=== PATIENT | female | born 1980 | race Caucasian/White ===

== ENCOUNTER → 2019-03-27 | Outpatient (CLI) | payer BC ==
--- NOTE | 2019-03-28 09:06 | MM ---
Reason for exam: screening (asymptomatic). Baseline mammogram. Physical Findings: Nurse did not find any significant physical abnormalities on exam. MG Screening Mammo w CAD Bilateral CC and MLO view(s) were taken. The breast tissue is heterogeneously dense. This may lower the sensitivity of mammography. No suspicious abnormality. These results were verbally communicated with the patient and result sheet given to the patient on 03/27/19. ASSESSMENT: Negative, BI-RAD 1 RECOMMENDATION: Routine screening mammogram of both breasts in 1 year.
== END | disposition home or self-care (01) ==
LOC: RADMAMWWP 15:39
PROVIDERS: ATTEND Obstetrics & Gynecology Obstetrics
DX: Z12.31 Encounter for screening mammogram for malignant neoplasm of breast (principal)
CPT/HCPCS: 77067

== ENCOUNTER → 2020-07-09 | Outpatient (CLI) | payer BC ==
--- NOTE | 2020-07-20 10:35 | MM ---
Reason for exam: screening (asymptomatic). Last mammogram was performed 1 year and 3 months ago. Physical Findings: A clinical breast exam by your physician is recommended on an annual basis and results should be correlated with mammographic findings. MG 3D Screening Mammo W/Cad Bilateral CC and MLO view(s) were taken. Prior study comparison: March 27, 2019, bilateral MG screening mammo w CAD. The breast tissue is heterogeneously dense. This may lower the sensitivity of mammography. Lateral left CC asymmetric density does not persist on 3D. No significant changes when compared with prior studies. ASSESSMENT: Negative, BI-RAD 1 RECOMMENDATION: Routine screening mammogram of both breasts in 1 year.
== END | disposition home or self-care (01) ==
LOC: RADMAMWWP 09:58
PROVIDERS: ATTEND Obstetrics & Gynecology Obstetrics
DX: Z12.31 Encounter for screening mammogram for malignant neoplasm of breast (principal)
CPT/HCPCS: 77063; 77067

== ENCOUNTER → 2021-04-14 | Outpatient (CLI) | payer BC ==
[2021-04-14 23:26] LABS: HCT 36.8 % (37.2-46.3); HGB 11.7 g/dL (12.0-15.0); MCH 30.7 pg (27.0-32.0); MCHC 31.8 g/dL (32.0-37.0); MCV 96.6 fL (80.0-97.0); Mean Platelet Volume 11.7 fL (9.5-12.2); Platelet Count 201 X 10*3/uL (140-440); RBC 3.81 X 10*6/uL (4.10-5.20); RDW 12.9 % (11.5-14.5); WBC 7.04 X 10*3/uL (4.50-10.00)
[2021-04-15 21:01] LABS: HCG,Quantitative Serum <0.1 (0.0-6.0)
== END | disposition home or self-care (01) ==
LOC: LABWHC1 15:39
PROVIDERS: ATTEND Obstetrics & Gynecology Obstetrics
DX: N93.9 Abnormal uterine and vaginal bleeding, unspecified (principal); R68.89 Other general symptoms and signs
CPT/HCPCS: 36415; 84439; 84443; 84702; 85027

== ENCOUNTER → 2021-10-11 | Outpatient (CLI) | payer BC ==
--- NOTE | 2021-10-11 21:18 | CT ---
EXAMINATION TYPE: CT sinus wo con DATE OF EXAM: 10/11/2021 COMPARISON: NONE HISTORY: sinus congestion CT DLP: 410.2 mGycm. Automated Exposure Control for Dose Reduction was Utilized. TECHNIQUE: CT scan of the sinuses is performed without contrast, axial images are obtained, coronal r eformatted images are also reviewed. FINDINGS: Some mucosal thickening and patchy opacification in the posterior ethmoid sinuses bilateral ly otherwise paranasal sinuses are clear.. The ostiomeatal complex is patent bilaterally on coronal image 18. Visualized portion of mastoid air cells show patchy opacification bilaterally. The globes are intact bilaterally. Visualized portion of brain parenchyma is unremarkable. IMPRESSION: Mild posterior ethmoid sinus disease bilaterally. Possible mild bilateral mastoiditis. Co rrelate clinically.
== END | disposition home or self-care (01) ==
LOC: RADCTMAIN 17:20
PROVIDERS: ATTEND Otolaryngology
DX: J32.2 Chronic ethmoidal sinusitis (principal)
CPT/HCPCS: 70486

== ENCOUNTER → 2021-11-03 | Outpatient (CLI) | payer BC ==
--- NOTE | 2021-11-04 12:01 | MM ---
Reason for exam: screening (asymptomatic). Last mammogram was performed 1 year and 4 months ago. Physical Findings: A clinical breast exam by your physician is recommended on an annual basis and results should be correlated with mammographic findings. MG 3D Screening Mammo W/Cad Bilateral CC and MLO view(s) were taken. Prior study comparison: July 09, 2020, bilateral MG 3d screening mammo w/cad. March 27, 2019, bilateral MG screening mammo w CAD. The breast tissue is heterogeneously dense. This may lower the sensitivity of mammography. Asymmetric breast tissue 10cm from nipple medial right breast on CC view and upper aspect on right MLO view 7cm from nipple. This finding is changed when compared with previous exams. ASSESSMENT: Incomplete: need additional imaging evaluation, BI-RAD 0 RECOMMENDATION: Special view mammogram of the right breast. If lesion persists on supplemental views, image directed ultrasound is recommended. [facility] will attempt to contact patient to return for supplemental views and ultrasound if indicated.
== END | disposition home or self-care (01) ==
LOC: RADMAMWWP 16:41
PROVIDERS: ATTEND Obstetrics & Gynecology Obstetrics
DX: Z12.31 Encounter for screening mammogram for malignant neoplasm of breast (principal)
CPT/HCPCS: 77063; 77067

== ENCOUNTER → 2021-11-09 | Outpatient (CLI) | payer BC ==
--- NOTE | 2021-11-09 10:55 | MM ---
Reason for exam: additional evaluation requested from abnormal screening. Last mammogram was performed less than 1 month ago. Physical Findings: A clinical breast exam by your physician is recommended on an annual basis and results should be correlated with mammographic findings. MG 3D Work Up W/Cad RT CC and MLO view(s) were taken of the right breast. Prior study comparison: November 03, 2021, bilateral MG 3d screening mammo w/cad. July 09, 2020, bilateral MG 3d screening mammo w/cad. The breast tissue is heterogeneously dense. This may lower the sensitivity of mammography. There is no definate abnormality but benign dense tissue. Results were given to the patient verbally at the time of the exam. ASSESSMENT: Incomplete: need additional imaging evaluation, BI-RAD 0 RECOMMENDATION: Ultrasound of the right breast.
== END | disposition home or self-care (01) ==
LOC: RADMAMWWP 10:00
PROVIDERS: ATTEND Obstetrics & Gynecology Obstetrics
DX: R92.8 Other abnormal and inconclusive findings on diagnostic imaging of breast (principal)
CPT/HCPCS: 77061; 77065

== ENCOUNTER → 2021-12-07 | Outpatient (CLI) | payer BC ==
[2021-12-07 10:37] LABS: Basophils # (A) 0.04 X 10*3/uL (0.00-0.10); Basophils % (A) 0.7 %; Eosinophils # (A) 0.23 X 10*3/uL (0.04-0.35); Eosinophils % (A) 4.2 %; HCT 38.8 % (37.2-46.3); HGB 11.9 g/dL (12.0-15.0); Immature Grans, Automated 0.2 %; Lymphocytes # (A) 2.13 X 10*3/uL (0.90-5.00); Lymphocytes % (A) 39.2 %; MCH 29.9 pg (27.0-32.0); MCHC 30.7 g/dL (32.0-37.0); MCV 97.5 fL (80.0-97.0); Mean Platelet Volume 12.1 fL (9.5-12.2); Monocytes % (A) 5.5 %; NRBC Per 100 WBC 0 /100 WBCS (0.0-0.0); Neutrophils # (A) 2.72 X 10*3/uL (1.80-7.70); Neutrophils % (A) 50.2 %; Platelet Count 181 X 10*3/uL (140-440); RBC 3.98 X 10*6/uL (4.10-5.20); RDW 12.6 % (11.5-14.5); WBC 5.43 X 10*3/uL (4.50-10.00)
[2021-12-07 10:50] LABS: ALT 13 U/L (8-44); African American GFR (CKD) 129.4 (60.0-200.0); Alkaline Phosphatase 38 U/L (41-126); Blood Urea Nitrogen 12.5 mg/dL (9.0-27.0); Non-African American GFR(CKD) 111.6 (60.0-200.0)
[2021-12-07 10:56] LABS: HCG,Quantitative Serum <3.0 (0.0-6.0); LDH 193 U/L (120-246)
== END | disposition home or self-care (01) ==
LOC: LABWHC1 07:04
PROVIDERS: ATTEND Dermatology
DX: L70.9 Acne, unspecified (principal)
CPT/HCPCS: 36415; 82247; 82465; 82565; 83615; 84075; 84460; 84478; 84520; 84702; 85025

== ENCOUNTER 2021-12-10 11:49 | Observation (INO) | payer BC ==
[2021-12-10 12:03] VITALS: RESP 16
[2021-12-10] MEDS ORDERED: SODIUM CHLORIDE 0.9% 1,000 ML IV STA (12:25)
[2021-12-10] MEDS ORDERED: diphenhydrAMINE 50 MG/ML 1 ML VIAL IVP STA (12:27)
[2021-12-10] MEDS ORDERED: methylPREDNISolone SOD SUCCI 125 MG/2 ML VIAL IV STA (12:27)
[2021-12-10] MEDS ORDERED: FAMOTIDINE 20 MG/2 ML VIAL IV STA (12:27)
--- NOTE | 2021-12-10 13:08 | ED ---
General Adult HPI - General Chief complaint: Seizure Stated complaint: Seizures Time Seen by Provider: 12/10/21 12:20 Source: patient, EMS, RN notes reviewed, old records reviewed Mode of arrival: EMS Limitations: no limitations - History of Present Illness Initial comments: Patient is a 41-year-old female with no significant past medical history who pr esents to the emergency department complaining of suspected new-onset seizure at work. Episode was witnessed. 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 Coworkers were talking with her and she stopped responding. She now she was laying on the ground. She had bitten her tongue. Jemima state that she began to collapse and they caught her and lowered her to the ground. She had generalized shaking episode, particularly the upper extremities. There is no episode of incontinence. Patient did feel confused afterwards, however states she feels back to normal in terms of mentation. This episode occurred approximately one hour ago. Her only acute complaint at this time is a headache, that seems to be one of the worst headaches of her life. Describes it as behind bilateral eyes, and throbbing. Denies any known history of brain aneurysms. Denies any blurry vision or changes in vision. Has no chest pain, shortness breath, abdominal pain, nausea, vomiting. No fevers or chills. No history of blood clots. The only medication she takes is control. Patient presents for further evaluation at this time. No history of epilepsy and family members herself previously. - Related Data Home Medications Medication Instructions Recorded Confirmed Azelastine HCl 2 sprays NASAL BID 12/10/21 12/10/21 Clindamycin Phos/Benzoyl Perox 1 applic TOPICAL DAILY 12/10/21 12/10/21 [Benzaclin Gel] Fexofenadine HCl [Linda Allergy] 180 mg PO DAILY 12/10/21 12/10/21 Multivitamins, Thera [Multivitamin 1 tab PO DAILY 12/10/21 12/10/21 (formulary)] Fxnyyu-Vf-Yu 1-0.02(21)-75 Tab 1 tab PO DAILY 12/10/21 12/10/21 Sarecycline HCl [Seysara] 100 mg PO DAILY 12/10/21 12/10/21 Sod Sulfacet-Sulfur 10-5% Clsr 1 applic TOPICAL DAILY 12/10/21 12/10/21 Allergies Allergy/AdvReac Type Severity Reaction Status Date / Time codeine Allergy Chest Pain Verified 12/10/21 13:44 Review of Systems ROS Statement: Those systems with pertinent positive or pertinent negative responses have been documented in the HPI. Review of Systems: CONST: Denies fever EYES: Denies blurry vision ENT: Denies nasal congestion C/V: Denies Chest pain RESP: Denies shortness of breath GI: Denies abdominal pain : Denies dysuria SKIN: Denies rash. MSK: Denies joint pain. NEURO: Endorses 9 out of 10 headache ROS Other: All systems not noted in ROS Statement are negative. Past Medical History Additional Past Medical History / Comment(s): Acne, History of Any Multi-Drug Resistant Organisms: None Reported Past Surgical History: Cholecystectomy Past Psychological History: No Psychological Hx Reported Smoking Status: Never smoker Past Alcohol Use History: Occasional Past Drug Use History: None Reported General Exam - General Exam Comments Initial Comments: General: Appears in no acute distress. HEAD: Normal with no signs of head trauma. EYES: PERRLA, EOMI, conjunctiva normal, no discharge. Pupils 2 mm and equal bilaterally. ENT: Hearing grossly intact, normal oropharynx. RESPIRATORY: Clear breath sounds bilaterally. No wheezes, rales, or rhonchi. C/V: Regular rate and rhythm. S1 and S2 auscultated, no edema, peripheral pulses 2+ and intact throughout ABD: Abd is soft, nontender, nondistended EXT: Normal range of motion, no obvious deformity SKIN: No rashes or lesions observed on exposed skin. NEURO: Alert and oriented x 4. Cranial nerves II-XII intact. No focal sensory or strength deficits. NIH of 0. GCS of 15. Normal cerebellar function is evident by normal finger to nose testing and [id number] testing. Limitations: no limitations Course Vital Signs 12/10/21 11:53 Temperature 97.8 F Pulse Rate 79 Respiratory 16 Rate Blood Pressure 144/91 O2 Sat by Pulse 100 Oximetry Medical Decision Making - Medical Decision Making Based on the patient's presentation and physical exam, I'm concerned for possible new onset seizure but cannot rule out syncopal episode. The patient severe headache, I am most concerned for possible acute intracranial process. Therefore we will obtain CT imaging of the brain and CT angiogram of the neck and head. This is in addition to a seizure workup, including basic labs, urine studies, alcohol level, chest x-ray and screening EKG. Vital signs are within normal limits and stable at this time. She states she may have had a reaction to iodine contrast in the past and will therefore be administered premedication with Benadryl, Pepcid, site Medrol. She'll be given 1 L fluid bolus and she was in agreement this plan. Patient's laboratory studies were remarkable for lactic acid within normal limits. Cranial kinase is mildly elevated at 141. Remainder of the labs are unremarkable. CT brain imaging revealed a possible minor Chiari I malformation. No other acute intracranial process. CT angiogram revealed no signs of aneurysm or acute intracranial process. No signs of any sort of intracranial bleeding. Chest x-ray shows no acute cardio pulmonary process. On reevaluation, patient is feeling improved. I did discuss the results with her. I would like to have her admitted and evaluated by neurology for new onset seizures. She was in agreement this plan. I spoke with Dr. Crouch of neurology was in agreement to consult. I spoke with the admitting team, and Dr. New of [facility] who is admitting for Dr. Gonzalez who is the patient's PCP. They were in agreement this plan. Patient was admitted in stable condition to observation. - Lab Data Result diagrams: 12/10/21 15:03 12/10/21 12:59 Lab Results 12/10/21 12/10/21 12/10/21 Range/Units 12:59 12:59 12:59 WBC (3.8-10.6) k/uL RBC (3.80-5.40) m/uL Hgb (11.4-16.0) gm/dL Hct (34.0-46.0) % MCV (80.0-100.0) fL MCH (25.0-35.0) pg MCHC (31.0-37.0) g/dL RDW (11.5-15.5) % Plt Count (150-450) k/uL MPV Neutrophils % % Lymphocytes % % Monocytes % % Eosinophils % % Basophils % % Neutrophils # (1.3-7.7) k/uL Lymphocytes # (1.0-4.8) k/uL Monocytes # (0-1.0) k/uL Eosinophils # (0-0.7) k/uL Basophils # (0-0.2) k/uL Sodium 135 L (137-145) mmol/L Potassium 3.8 (3.5-5.1) mmol/L Chloride 102 (98-107) mmol/L Carbon Dioxide 26 (22-30) mmol/L Anion Gap 7 mmol/L BUN 13 (7-17) mg/dL Creatinine 0.49 L (0.52-1.04) mg/dL Est GFR (CKD-EPI)AfAm >90 (>60 ml/min/1.73 sqM) Est GFR (CKD-EPI)NonAf >90 (>60 ml/min/1.73 sqM) Glucose 94 (74-99) mg/dL Plasma Lactic Acid Telly 1.8 (0.7-2.0) mmol/L Calcium 8.1 L (8.4-10.2) mg/dL Magnesium 1.9 (1.6-2.3) mg/dL Total Bilirubin 0.4 (0.2-1.3) mg/dL AST 26 (14-36) U/L ALT 15 (4-34) U/L Alkaline Phosphatase 36 L (38-126) U/L Creatine Kinase 141 H (30-135) U/L Total Protein 7.1 (6.3-8.2) g/dL Albumin 3.8 (3.5-5.0) g/dL HCG, Qual Not Detected Urine Color Colorless Urine Appearance Clear (Clear) Urine pH 7.0 (5.0-8.0) Ur Specific [place] 1.010 (1.001-1.035) Urine Protein Negative (Negative) Urine Glucose (UA) Negative (Negative) Urine Ketones Negative (Negative) Urine Blood Negative (Negative) Urine Nitrite Negative (Negative) Urine Bilirubin Negative (Negative) Urine Urobilinogen <2.0 (<2.0) mg/dL Ur Leukocyte Esterase Negative (Negative) Urine Opiates Screen Not Detected (NotDetected) Ur Oxycodone Screen Not Detected (NotDetected) Urine Methadone Screen Not Detected (NotDetected) Ur Propoxyphene Screen Not Detected (NotDetected) Ur Barbiturates Screen Not Detected (NotDetected) U Tricyclic Antidepress Not Detected (NotDetected) Ur Phencyclidine Scrn Not Detected (NotDetected) Ur Amphetamines Screen Not Detected (NotDetected) U Methamphetamines Scrn Not Detected (NotDetected) U Benzodiazepines Scrn Not Detected (NotDetected) Urine Cocaine Screen Not Detected (NotDetected) U Marijuana (THC) Screen Not Detected (NotDetected) Serum Alcohol <10 mg/dL 12/10/21 Range/Units 15:03 WBC 7.8 (3.8-10.6) k/uL RBC 4.14 (3.80-5.40) m/uL Hgb 12.7 (11.4-16.0) gm/dL Hct 39.7 (34.0-46.0) % MCV 96.0 (80.0-100.0) fL MCH 30.7 (25.0-35.0) pg MCHC 32.0 (31.0-37.0) g/dL RDW 12.7 (11.5-15.5) % Plt Count 220 (150-450) k/uL MPV 8.8 Neutrophils % 84 % Lymphocytes % 12 % Monocytes % 2 % Eosinophils % 1 % Basophils % 0 % Neutrophils # 6.5 (1.3-7.7) k/uL Lymphocytes # 0.9 L (1.0-4.8) k/uL Monocytes # 0.1 (0-1.0) k/uL Eosinophils # 0.1 (0-0.7) k/uL Basophils # 0.0 (0-0.2) k/uL Sodium (137-145) mmol/L Potassium (3.5-5.1) mmol/L Chloride (98-107) mmol/L Carbon Dioxide (22-30) mmol/L Anion Gap mmol/L BUN (7-17) mg/dL Creatinine (0.52-1.04) mg/dL Est GFR (CKD-EPI)AfAm (>60 ml/min/1.73 sqM) Est GFR (CKD-EPI)NonAf (>60 ml/min/1.73 sqM) Glucose (74-99) mg/dL Plasma Lactic Acid Telly (0.7-2.0) mmol/L Calcium (8.4-10.2) mg/dL Magnesium (1.6-2.3) mg/dL Total Bilirubin (0.2-1.3) mg/dL AST (14-36) U/L ALT (4-34) U/L Alkaline Phosphatase (38-126) U/L Creatine Kinase (30-135) U/L Total Protein (6.3-8.2) g/dL Albumin (3.5-5.0) g/dL HCG, Qual Urine Color Urine Appearance (Clear) Urine pH (5.0-8.0) Ur Specific [place] (1.001-1.035) Urine Protein (Negative) Urine Glucose (UA) (Negative) Urine Ketones (Negative) Urine Blood (Negative) Urine Nitrite (Negative) Urine Bilirubin (Negative) Urine Urobilinogen (<2.0) mg/dL Ur Leukocyte Esterase (Negative) Urine Opiates Screen (NotDetected) Ur Oxycodone Screen (NotDetected) Urine Methadone Screen (NotDetected) Ur Propoxyphene Screen (NotDetected) Ur Barbiturates Screen (NotDetected) U Tricyclic Antidepress (NotDetected) Ur Phencyclidine Scrn (NotDetected) Ur Amphetamines Screen (NotDetected) U Methamphetamines Scrn (NotDetected) U Benzodiazepines Scrn (NotDetected) Urine Cocaine Screen (NotDetected) U Marijuana (THC) Screen (NotDetected) Serum Alcohol mg/dL Disposition Clinical Impression: New onset seizure Disposition: ADMITTED IP TO THIS [facility] Condition: Stable Instructions (If sedation given, give patient instructions): Seizure/Epilepsy Discharge Instructions & Follow-Up Referrals: Guillermo Castañeda MD [Primary Care Provider] - 1-2 days Time of Disposition: 16:00
[2021-12-10 13:45] LABS: HCG,Qualitative Serum Not Detected
[2021-12-10 13:47] LABS: ALT 15 U/L (4-34); AST 26 U/L (14-36); African American GFR (CKD) >90 (>60 ml/min/1.73 sqM); Albumin 3.8 g/dL (3.5-5.0); Alcohol <10 mg/dL; Alkaline Phosphatase 36 U/L (38-126); Anion Gap 7 mmol/L; Blood Urea Nitrogen 13 mg/dL (7-17); Calcium 8.1 mg/dL (8.4-10.2); Carbon Dioxide 26 mmol/L (22-30); Chloride 102 mmol/L (98-107); Creatine Kinase 141 U/L (30-135); Glucose 94 mg/dL (74-99); Magnesium 1.9 mg/dL (1.6-2.3); Non-African American GFR(CKD) >90 (>60 ml/min/1.73 sqM); Potassium 3.8 mmol/L (3.5-5.1); Sodium 135 mmol/L (137-145); Total Bilirubin 0.4 mg/dL (0.2-1.3); Total Protein 7.1 g/dL (6.3-8.2)
--- NOTE | 2021-12-10 14:25 | XR ---
EXAMINATION TYPE: XR chest 2V DATE OF EXAM: 12/10/2021 COMPARISON: NONE HISTORY: Seizure. TECHNIQUE: Frontal and lateral views of the chest are obtained. FINDINGS: There is no suspicious focal air space opacity, pleural effusion, or pneumothorax seen. T he cardiac silhouette size is mildly enlarged. Underlying scoliosis is present. There is loss of norm al thoracic curvature on the lateral view. IMPRESSION: Mild cardiomegaly without acute pulmonary process.
--- NOTE | 2021-12-10 14:46 | CT ---
EXAMINATION TYPE: CT brain wo con DATE OF EXAM: 12/10/2021 COMPARISON: None. HISTORY: seizure CT DLP: 1092.6 mGycm. Automated Exposure Control for Dose Reduction was Utilized. TECHNIQUE: CT scan of the head is performed without contrast. FINDINGS: There is no acute intracranial hemorrhage, mass effect, or midline shift identified. The ventricles and sulci are within normal limits in size. Antony-white matter differentiation is maintain ed. Low-lying cerebellar tonsils extending into the foramen magnum. The globes are intact and the vis ualized sinuses are clear. Persistent anterior metopic suture. IMPRESSION: No acute intracranial hemorrhage or midline shift is seen. Low-lying cerebellar tonsils, possible Chiari type I malformation.
--- NOTE | 2021-12-10 15:11 | CT ---
EXAMINATION TYPE: CT angio head neck DATE OF EXAM: 12/10/2021 HISTORY: Headache and seizures COMPARISON: None Automated Exposure Control for Dose Reduction was Utilized. TECHNIQUE: Multiple axial images are obtained through the head and neck following uneventful menstru ation nonionic IV contrast and according to the CTA protocol. Coronal and sagittal reconstructions we re generated. 3-D postprocessing was performed. Images were also generated and reviewed. FINDINGS: The brachiocephalic origins are widely patent and there is no significant stenosis. There is no stenosis of the common or internal carotid arteries within the neck. There is no significant stenosis or segmental occlusion within the intracerebral arterial circulation . Intracranially, there is no sizable aneurysm sac or vascular malformation. IMPRESSION: No significant abnormality seen. NASCET criteria was used in interpretation of this exam?
[2021-12-10 15:13] LABS: Basophils % (A) 0 %; Eosinophils # (A) 0.1 k/uL (0-0.7); Eosinophils % (A) 1 %; HCT 39.7 % (34.0-46.0); HGB 12.7 gm/dL (11.4-16.0); Lymphocytes # (A) 0.9 k/uL (1.0-4.8); Lymphocytes % (A) 12 %; MCH 30.7 pg (25.0-35.0); Mean Platelet Volume 8.8; Monocytes # (A) 0.1 k/uL (0-1.0); Monocytes % (A) 2 %; Neutrophils # (A) 6.5 k/uL (1.3-7.7); Neutrophils % (A) 84 %; Platelet Count 220 k/uL (150-450); RBC 4.14 m/uL (3.80-5.40); RDW 12.7 % (11.5-15.5); WBC 7.8 k/uL (3.8-10.6)
[2021-12-10 15:29] LABS: Appearance,Urine Clear (Clear); Bilirubin,Urine Negative (Negative); Blood,Urine Negative (Negative); Color,Urine Colorless; Glucose,Urine (UA) Negative (Negative); Ketones,Urine Negative (Negative); Leukocyte Esterase,Urine Negative (Negative); Nitrite,Urine Negative (Negative); Protein,Urine Negative (Negative); Urobilinogen,Urine <2.0 mg/dL (<2.0)
[2021-12-10 16:03] LABS: Amphetamine Screen,Urine Not Detected (NotDetected); Barbiturate Screen,Urine Not Detected (NotDetected); Benzodiazepines Screen,Urine Not Detected (NotDetected); Cocaine Screen,Urine Not Detected (NotDetected); Methadone Screen, Urine Not Detected (NotDetected); Opiate Screen,Urine Not Detected (NotDetected); Oxycodone Screen, Urine Not Detected (NotDetected); Phencyclidine Screen,Urine Not Detected (NotDetected); Tricyclic Antidepressant,Urine Not Detected (NotDetected); Urn Cannabinoid Scrn Not Detected (NotDetected)
[2021-12-10] MEDS ORDERED: NALOXONE 0.4 MG/ML 1 ML VIAL IV PRN (16:20)
[2021-12-11 08:45] VITALS: BP 136/67; PULSE 46; TEMP 97.6
[2021-12-11 12:00] LABS: Basophils # (A) 0.01 X 10*3/uL (0.00-0.10); Basophils % (A) 0.1 %; Eosinophils # (A) 0 X 10*3/uL (0.04-0.35); Eosinophils % (A) 0 %; HCT 39.5 % (37.2-46.3); HGB 12.4 g/dL (12.0-15.0); Immature Grans, Automated 0.5 %; Lymphocytes # (A) 1.11 X 10*3/uL (0.90-5.00); Lymphocytes % (A) 10.8 %; MCH 30.9 pg (27.0-32.0); MCHC 31.4 g/dL (32.0-37.0); MCV 98.5 fL (80.0-97.0); Mean Platelet Volume 12.1 fL (9.5-12.2); Monocytes # (A) 0.46 X 10*3/uL (0.20-1.00); Monocytes % (A) 4.5 %; NRBC Per 100 WBC 0 /100 WBCS (0.0-0.0); Neutrophils # (A) 8.64 X 10*3/uL (1.80-7.70); Neutrophils % (A) 84.1 %; Platelet Count 203 X 10*3/uL (140-440); RBC 4.01 X 10*6/uL (4.10-5.20); RDW 12.8 % (11.5-14.5); WBC 10.27 X 10*3/uL (4.50-10.00)
[2021-12-11 12:03] LABS: African American GFR (CKD) 129.4 (60.0-200.0); Anion Gap 11.2 mmol/L (10.00-18.00); Blood Urea Nitrogen 9.6 mg/dL (9.0-27.0); Calcium 8.8 mg/dL (8.7-10.3); Carbon Dioxide 23.8 mmol/L (20.0-27.5); Non-African American GFR(CKD) 111.6 (60.0-200.0); Potassium 3.7 mmol/L (3.5-5.5)
--- NOTE | 2021-12-11 14:07 | P.HPIM ---
History of Present Illness H&P Date: 12/11/21 Chief Complaint: Seizures Patient is a 41-year-old female without significant past medical history presents to ER after a witnessed seizure activity at work. 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 She suddenly had a episode of sandy vu and started having shaking movements of the hands. Patient's colleague caught her and lowered her to the ground. She leaned onto the ground and bit her tongue. She was also having frothy mouth at bedtime. EMS was called and patient woke up while she was coming to ER. Denied any complaints of bladder or bowel incontinence. Patient states that she has been having episodes of sandy vu when she suddenly losing consciousness briefly but this time she had prolonged episode with shaky movements. Denied any complaints of headache. No recent illnesses. Denied any blurry vision. No slurred speech. She patient felt weak and she woke up. Denied any recent illnesses. Chest x-ray showed mild cardiomegaly without acute pulmonary disease. CT head showed no acute intracranial hemorrhage or midline shift is seen. Low- lying cerebellar tonsils. Possible leticia type I malformation. CT angiogram showed no significant abnormality. EKG showed sinus bradycardia with sinus arrhythmia. Laboratory data showed a sodium that her potassium 3.8 chloride 102 bicarb is 26 BUN 13 and creatinine 0.49 Lactic acid 21.8 Alk phos 36 and CK 141. Beta hcg not detected Urinalysis is negative and UDS is negative. Review of Systems Constitutional: Patient denies any fever or chills . No generalized weakness or weight loss. Abdomen: Patient denied nausea vomiting and diarrhea and abdominal pain. Cardiovascular: Patient denies any chest pain or short of breath no palpitations. Respiratory: patient denied any cough is from production. No shortness of breath Neurologic: Patient denied any numbness or tingling headache. Musculoskeletal: Patient denies any complaints of joint swelling or deformity. Skin: Negative Psychiatric: Negative Endocrine: No heat or cold intolerance. No recent weight gain. Genitourinary: No dysuria or hematuria. All other 14 point ROS negative except the above Past Medical History Past Medical History: No Reported History Additional Past Medical History / Comment(s): Acne, History of Any Multi-Drug Resistant Organisms: None Reported Past Surgical History: Cholecystectomy Past Psychological History: No Psychological Hx Reported Smoking Status: Former smoker Past Alcohol Use History: Occasional Past Drug Use History: None Reported Medications and Allergies Home Medications Medication Instructions Recorded Confirmed Type Hetldx-Zn-Ck 1-0.02(73)-75 Tab 1 tab PO DAILY 12/10/21 12/10/21 History RX: Azelastine HCl 2 sprays NASAL BID 12/10/21 12/10/21 History RX: Clindamycin Phos/Benzoyl Perox 1 applic TOPICAL DAILY 12/10/21 12/10/21 History [Benzaclin Gel] RX: Fexofenadine HCl [Linda 180 mg PO DAILY 12/10/21 12/10/21 History Allergy] RX: Multivitamins, Thera 1 tab PO DAILY 12/10/21 12/10/21 History [Multivitamin (formulary)] RX: Sarecycline HCl [Seysara] 100 mg PO DAILY 12/10/21 12/10/21 History Sod Sulfacet-Sulfur 10-5% Clsr 1 applic TOPICAL DAILY 12/10/21 12/10/21 History Allergies Allergy/AdvReac Type Severity Reaction Status Date / Time codeine Allergy Chest Pain Verified 12/10/21 13:44 Physical Exam Vitals: Vital Signs Temp Pulse Resp BP Pulse Ox 12/11/21 08:44 97.6 F 46 L 16 136/67 99 12/11/21 02:33 98.1 F 67 16 108/62 98 12/10/21 22:37 98.1 F 68 17 151/82 96 Intake and Output 12/10/21 12/11/21 12/11/21 22:59 06:59 14:59 Intake Total 118 Balance 118 Intake: Oral 118 Other: # Voids 1 1 1 Weight 83.915 kg PHYSICAL EXAMINATION: Patient is lying in the bed comfortably, no acute distress, awake alert and oriented.. HEENT: Normocephalic. Neck is supple. Pupils reactive. Nostrils clear. Oral cavity is moist. Neck reveals no JVD, carotid bruits, or thyromegaly. CHEST EXAMINATION: Trachea is central. Symmetrical expansion. Lung cristina clear to auscultation and percussion. CARDIAC: Normal S1, S2 with no gallops. No murmurs ABDOMEN: Soft. Bowel sounds normal. No organomegaly. No abdominal bruits. Extremities: reveal no edema. No clubbing or cyanosis Neurologically awake, alert, oriented x3 with well-coordinated movements. No focal deficits noted Skin: No rash or skin lesions. Psychiatric: Coperative. Nonsuicidal Musculoskeletal: No joint swelling or deformity. Normal range of motion. Results CBC & Chem 7: 12/11/21 06:57 12/11/21 06:57 Labs: Abnormal Lab Results - Last 24 Hours (Table) 12/10/21 12/11/21 12/11/21 Range/Units 15:03 06:57 06:57 WBC 10.27 H (4.50-10.00) X 10*3/uL RBC 4.01 L (4.10-5.20) X 10*6/uL MCV 98.5 H (80.0-97.0) fL MCHC 31.4 L (32.0-37.0) g/dL Immature Gran # 0.05 H (0.00-0.04) X 10*3/uL Neutrophils # 8.64 H (1.80-7.70) X 10*3/uL Lymphocytes # 0.9 L (1.0-4.8) k/uL Eosinophils # 0 L (0.04-0.35) X 10*3/uL Glucose 119 H (70-110) mg/dL Thrombosis Risk Factor Assmnt - DVT/VTE Prophylaxis DVT/VTE Prophylaxis: Pharmacologic Prophylaxis ordered Assessment and Plan Assessment: Acute seizure episode possible new onset generalized tonic-clonic seizure. History of Aura / Deje vu -like episodes for the past few years. Chiari type I malformation Previous history of smoking DVT prophylaxis with early ambulation. Plan: Patient be continued on seizure precautions and fall precautions. Workup including CT head and CT angiography the chest was done. EEG and MRI of the brain was ordered as per neurology recommendations. Continue the telemetry monitoring. Follow up closely. Time with Patient: Greater than 30
--- NOTE | 2021-12-11 14:56 | MR ---
EXAMINATION TYPE: MR brain wo/w con DATE OF EXAM: 12/11/2021 COMPARISON: None HISTORY: New onset seizure CONTRAST: Standard multiplanar, multisequence MRI departmental protocol images were obtained without contrast a nd with 8 mL intravenous Gadavist gadolinium contrast. Ventricles have normal size. There is no mass effect or midline shift. No sign of intracranial hemorr mana. Diffusion images show no evidence of an acute infarct. The schneider and white matter structures hav e fairly normal signal pattern. No evidence of cerebral edema. There is possible 3 mm focus of increa sed signal in the white matter left parietal lobe. This has doubtful significance. The brainstem is intact. Cerebellum appears normal. There is some mucosal thickening in the right judie e posterior ethmoid sinus. Sella turcica appears normal. Corpus callosum is intact. No evidence of orbital mass. There is no pathologic enhancement. There is normal enhancement of the venous sinuses. Optic chiasm a ppears normal. IMPRESSION: Negative MRI scan of the brain.
--- NOTE | 2021-12-11 15:13 | P.CNNES ---
History of Present Illness Consult date: 12/11/21 Requesting physician: Guillermo Castañeda Reason for Consult: New onset seizure History of Present Illness: Patient is a 41-year-old female came to the hospital yesterday at 11:49 AM. As per EMS flow sheet, when they arrived, found patient postictal, alert and oriented 1 only to herself. She was laying supine on the ground surrounded by coworkers. Patient's coworker stated that patient had a seizure but did not fall or hit her head, as she was helped down by her coworkers and they had protected her head from the impact. Patient's coworkers contacted patient's , who stated she did not have any history of seizures but was recently placed on 2 new medication but could not remember the names. Although one was for acne and the other one for control. Patient was speaking incoherent sentences. EKG shows sinus rhythm with no ectopy. Patient's condition appeared to improve as transport progress. By the time she arrived to the hospital by ambulance, patient was alert and oriented 4. Patient mentioned that the last thing she remembered was having a strange feeling, and after that she blacked out. Her vitals at the scene was 153/86, pulse rate 89 and respirations 20 oxygenation 97% blood sugar 114. Vital signs arrival blood pressure 144/91 pulse is 70. 7.8.. Patient's blood test shows normal CBC, sodium 135 potassium 3.8, normal renal functions, normal hepatic panel. UA negative, urine drug screen and blood alcohol level negative. CT head showed no acute process. Low-lying cerebellar tonsils, possible Chiari I malformation. CTA of head and neck normal. EKG shows sinus bradycardia with sinus arrhythmia. Possible left atrial enlargement. Chest x-ray revealed mild cardiomegaly without acute pulmonary process. Patient states that for around last 2 years she has been having Linda vu type symptoms. It can happen when she is sitting, standing or even while laying in bed. She gets some picture in her mind, or "words that she has heard before". She then zones out, becomes jittery, shaky, nauseous. She feels like "out of body experience". She can hear, but appears muffled. She feels nauseous, but does not vomit. She never had any convulsion with it. It can occur after 3 days, or may not occur for a month. She had at least a dozen of these spells over these couple years. Only a couple times it has happened when patient was talking to someone. One time she was at the doctor's office with her daughter, when she had a spell, and she could not respond until the spell was over. Patient has not seen any neurologist for these spells. Patient states that she also gets some visual disturbance, unrelated to the above spells, consisting of seeing blotches in her vision, can last from an hour to a whole day. These visual disturbances has been occurring for last 4 years. She denies any history of migraines, although sometimes gets sinus pressure headache, feels like eyes will bulge out. Patient states that yesterday at work at 11:30 PM she was standing outside at recess, talking to a coworker when she had a similar Linda vu and then she blacked out. Coworker later told the patient started shaking, foaming from the mouth, she bit her tongue but did not lose control of urine. Patient denies any history of concussion, or head injury. No history of febrile seizures as childhood. Denies any known family history of epilepsy, although patient states that her son also has been experiencing same linda vu type of symptoms for some time. Patient denies drinking heavily. She does drink 1-2 glasses of wine every day. She may drink a bit more, about 4-6 on the weekend. Denies any tobacco use. Patient states that her mother has to that she was born full-term with no problems postnatally. Home medications include multivitamins, fexofenadine, Azelastine, Noreth-E-Fe a control pill, Seysara 100 mg daily. Review of Systems All 14 point a few system reviewed, unremarkable except for tongue soreness from tongue bite. All other review of systems unremarkable. She does feel tired. Past Medical History Past Medical History: No Reported History Additional Past Medical History / Comment(s): Acne, History of Any Multi-Drug Resistant Organisms: None Reported Past Surgical History: Cholecystectomy Past Psychological History: No Psychological Hx Reported Smoking Status: Former smoker Past Alcohol Use History: Occasional Past Drug Use History: None Reported Medications and Allergies Home Medications Medication Instructions Recorded Confirmed Type Azelastine HCl 2 sprays NASAL BID 12/10/21 12/10/21 History Clindamycin Phos/Benzoyl Perox 1 applic TOPICAL DAILY 12/10/21 12/10/21 History [Benzaclin Gel] Fexofenadine HCl [Linda Allergy] 180 mg PO DAILY 12/10/21 12/10/21 History Multivitamins, Thera [Multivitamin 1 tab PO DAILY 12/10/21 12/10/21 History (formulary)] Lttacq-Bu-Bk 1-0.02(21-75 Tab 1 tab PO DAILY 12/10/21 12/10/21 History Sarecycline HCl [Seysara] 100 mg PO DAILY 12/10/21 12/10/21 History Sod Sulfacet-Sulfur 10-5% Clsr 1 applic TOPICAL DAILY 12/10/21 12/10/21 History Allergies Allergy/AdvReac Type Severity Reaction Status Date / Time codeine Allergy Chest Pain Verified 12/10/21 13:44 Physical Examination - Vital Signs Vital Signs: Vital Signs Temp Pulse Pulse Resp BP BP Pulse Ox 12/11/21 02:33 98.1 F 67 16 108/62 98 12/10/21 22:37 98.1 F 68 17 151/82 96 12/10/21 14:00 149/97 100 12/10/21 13:24 144/91 99 12/10/21 11:53 97.8 F 79 16 144/91 100 Intake and Output 12/10/21 12/11/21 12/11/21 22:59 06:59 14:59 Other: # Voids 1 1 Weight 83.915 kg Patient is a middle aged female, in no acute distress. Patient is alert awake oriented to time place and person. Speech and language functions are normal. Patient can name and repeat very well. Attention, concentration and fund of knowledge is adequate. On cranial nerve examination, pupils are round and reacting to light, visual cristina are full on confrontation, with no neglect on double simultaneous stimulation. Her extraocular muscles are intact with no nystagmus. Face is symmetric, tongue protrudes to the midline. Palatal elevation and sensation normal, hearing and shoulder shrug normal, facial sensation normal. Shoulder shrug normal. There is evidence of tongue bite pola on the right. On muscle strength testing, there is no pronator drift and the strength is normal in arms and legs distally and proximally. Deep tendon reflexes are 2+, symmetric and plantars downgoing. Sensory to touch is equal with no neglect. Cerebellar function showed no ataxia for qqlbto-sw-scis testing. No dysdiadochokinesia. Tone and bulk of muscles normal. Gait appears stable. On general examination, there is no carotid bruit or murmur, S1-S2 audible. Abdomen is soft nontender. No organomegaly, bowel sounds present. Chest is clear. Peripheral pulses are present. No edema. 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 Patient has been having auras, described as "Linda-Vu", which probably represents simple versus complex partial seizure sporadically for last 2 years. This time this "Linda Vu" led to a secondary generalized grand mal seizure. * Chiari malformation per CT head. * History of mild alcoholism, probably not related to her seizure. Plan: * Patient will undergo MRI of the brain with and without contrast to evaluate for secondary causes of seizures. Patient also has Chiari malformation, which needs to be addressed with MRI of the brain. * EEG to evaluate for epileptiform activity. * Patient informed of [place] state law of no driving unless seizure free for 6 months, climbing ladders, operating dangerous machinery or unsupervised swimming. Addendum: MRI of the brain with and without contrast was performed, which was reviewed by the radiologist, and read as normal. I reviewed MRI of the brain, and there is definite evidence of Chiari malformation, with cerebellar tonsils protruding around 8 mm below the foramen magnum. No evidence of hydrocephalus. No syrinx noted in the upper cervical spine. Patient needs to be followed up with a neurosurgeon as an outpatient. Patient will be started on Keppra 500 mg twice a day. Possible side effects were discussed. Patient will be discharged home, and undergo 2.5 hours EEG as an outpatient. Recommend patient follow up with neurologist as an outpatient. Neurologically clear for discharge. Time with Patient: Greater than 30 (Spent around 25 minutes of counseling, besides the time spent in direct patient care.)
[2021-12-11] MEDS ORDERED: levETIRAcetam 500 MG TAB PO STA (15:40)
== END 2021-12-11 17:03 | disposition home or self-care (01) ==
LOC: SUPCPDRO 11:49 → EC 11:49 → 6NMEDSUR 16:20
PROVIDERS: ADMIT Internal Medicine; ATTEND Internal Medicine
DX: G40.409 Other generalized epilepsy and epileptic syndromes, not intractable, without status epilepticus (principal); G93.5 Compression of brain; R00.1 Bradycardia, unspecified; Z79.899 Other long term (current) drug therapy; Z88.5 Allergy status to narcotic agent; Z87.891 Personal history of nicotine dependence; Z90.49 Acquired absence of other specified parts of digestive tract
CPT/HCPCS: 96374; 96375; 99285; 36415; 93005; 80053; 80048; 82550; 83605; 83735; 85025 ×2; 81003; 84703; 80306; 80320; 71046; 70496; 70450; 70498; 70553; G0378 ×2; J1200; J2930; A9585; Q9967

== ENCOUNTER → 2021-12-17 | Outpatient (CLI) | payer BC | LOC: NEUROMAIN 07:47 | PROVIDERS: ATTEND Student in an Organized Health Care Education/Training Program | DX: G40.909 Epilepsy, unspecified, not intractable, without status epilepticus (principal); Z88.5 Allergy status to narcotic agent | CPT/HCPCS: 95713 ==

== ENCOUNTER 2022-04-19 15:01 | Emergency (ER) | payer OTHER, BC ==
[2022-04-19 15:07] VITALS: BP 134/82; PULSE 60; RESP 16; TEMP 98
[2022-04-19] MEDS ORDERED: DIPH,PERTUS(ACELL)TETVAC-LF 0.5 ML VIAL IM ONE (15:34)
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
== END 2022-04-19 15:48 | disposition home or self-care (01) ==
LOC: EC 15:01
DX: S60.512A Abrasion of left hand, initial encounter (principal); Z87.891 Personal history of nicotine dependence; Z23 Encounter for immunization; Z88.5 Allergy status to narcotic agent; Y04.1XXA Assault by human bite, initial encounter
CPT/HCPCS: 90471; 90715; 99282; 99283

== ENCOUNTER → 2022-11-23 | Outpatient (CLI) | payer BC ==
--- NOTE | 2022-11-24 19:29 | MM ---
Reason for Exam: Screening (asymptomatic). Last mammogram was performed 1 year(s) and 1 month(s) ago. Patient History: Menarche at age 10. First Full-Term at age 19. Last menstrual period: 10/24/2022 Risk Values: Agnes 5 year model risk: 0.7%. NCI Lifetime model risk: 8.7%. Prior Study Comparison: 07/09/2020 Bilateral Screening Mammogram, [facility]. 11/03/2021 Bilateral Screening Mammogram, [facility]. 11/09/2021 Right Diagnostic Mammogram, [facility]. Tissue Density: The breast tissue is heterogeneously dense. This may lower the sensitivity of mammography. Findings: Analyzed By CAD. There is no suspicious group of microcalcifications or new suspicious mass in either breast. Overall Assessment: Negative, BI-RAD 1 Management: Screening Mammogram of both breasts in 1 year. . Patient should continue monthly self-breast exams. A clinical breast exam by your physician is recommended on an annual basis. This exam should not preclude additional follow-up of suspicious palpable abnormalities. Note on Agnes scores and lifetime risk: 1. A Agnes score greater than 3% is considered moderate risk. If this is the case, consider specialist referral to assess eligibility for a risk reducing agent. 2. If overall lifetime risk for the development of breast cancer is 20% or higher, the patient may qualify for future screening with alternating mammogram and breast MRI. Electronically signed and approved by: Bee Cruz M.D. Radiologist
== END | disposition home or self-care (01) ==
LOC: RADMAMWWP 16:36
PROVIDERS: ATTEND Obstetrics & Gynecology Obstetrics
DX: Z12.31 Encounter for screening mammogram for malignant neoplasm of breast (principal)
CPT/HCPCS: 77063; 77067

== ENCOUNTER 2023-04-18 08:39 | Day surgery (SDC) | payer BC ==
[2023-04-11 16:16] VITALS: BMI 25.1
[~2023-04-18 08:39] MED LIST: DEXAMETHASONE SOD PHOSPHATE 4 MG/ML 1 ML VIAL IV ONE; LACTATED RINGERS 1,000 ML IV SCH; ONDANSETRON 4 MG/2 ML VIAL IVP ONE; fentaNYL (PF) 50 MCG/ML 2 ML AMP IV PRN
[2023-04-18] MEDS ORDERED: MIDAZOLAM 2 MG/2 ML VIAL IVP ONE (09:48)
--- NOTE | 2023-04-18 10:28 | P.HPOB ---
History of Present Illness H&P Date: 04/18/23 Chief Complaint: Heavy menstrual bleeding, dysmenorrhea, ovarian cyst This is a 42-year-old female that presents with complaints of heavy menstrual bleeding and dysmenorrhea. Patient notes her increased bleeding began mostly in November with menstrual cycles on 12/08, 12/26, 01/22, 01/31. Patient states her bleeding is noted to be heavy with clots for proximally 5-6 days. Patient notes that during her cycle she is increasingly fatigued. Ultrasound was performed revealing a slightly enlarged uterus at 9.8 cm, large left ovarian cyst at 5 cm. Uterus has suspicion for adenomyosis. Failure rates of endometrial ablation given her findings are discussed and patient elects d efinitive treatment with hysterectomy. Review of Systems Constitutional: Reports fatigue, Denies chills, Denies fever Ears, nose, mouth and throat: Denies headache Cardiovascular: Denies leg edema Respiratory: Denies dyspnea Gastrointestinal: Denies nausea, Denies vomiting Genitourinary: Reports dysmenorrhea, Denies Menstruation: Reports period heavy Past Medical History Past Medical History: No Reported History Additional Past Medical History / Comment(s): Acne, HAD GRAND MAL SEIZURE 2020, SEASONAL ALLERGIES History of Any Multi-Drug Resistant Organisms: None Reported Past Surgical History: Cholecystectomy Additional Past Surgical History / Comment(s): BILAT TEAR DUCTS ENLARGED Past Anesthesia/Blood Transfusion Reactions: No Reported Reaction Smoking Status: Former smoker - Past Family History Father Family Medical History: Cancer Medications and Allergies Home Medications Medication Instructions Recorded Confirmed Type Azelastine HCl [Astelin Nasal 2 sprays NASAL BID 12/10/21 04/18/23 History [place]] Fexofenadine HCl [Linda Allergy] 180 mg PO DAILY 12/10/21 04/18/23 History Doxycycline Hyclate 100 mg PO BID 04/11/23 04/18/23 History levETIRAcetam [Keppra] 750 mg PO Q12HR 04/11/23 04/18/23 History Allergies Allergy/AdvReac Type Severity Reaction Status Date / Time codeine Allergy Chest Pain Verified 04/18/23 09:22 Exam Osteopathic Statement: *. No significant issues noted on an osteopathic structural exam other than those noted in the History and Physical/Consult. 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 Assessment and Plan (1) Menorrhagia Current Visit: Yes Status: Acute Code(s): N92.0 - SNOMED Code(s): 152965287 (2) Dysmenorrhea Current Visit: Yes Status: Acute Code(s): N94.6 - SNOMED Code(s): 377696395 (3) Ovarian cyst Current Visit: Yes Status: Acute Code(s): N83.209 - SNOMED Code(s): 02350576 (4) Fibroid uterus Current Visit: Yes Status: Acute Code(s): D25.9 - LEIOMYOMA OF UTERUS, UNSPECIFIED SNOMED Code(s): 01929854 Plan: 42-year-old female with complaints of heavy menstrual bleeding and dysmenorrhea. Patient with ultrasound evaluation of the pelvis revealing slightly enlarged uterus at 9.8 cm suspicion of adenomyosis and large 5 cm left ovarian cyst. Patient is counseled on options including endometrial ablation and failure rates given signs of adenomyosis and left ovarian cyst. Patient elects definitive t reatment with hysterectomy. Patient is counseled on robotic cyst vaginal hysterectomy with left salpingo-oophorectomy, diagnostic cystoscopy. Risser reviewed with patient in detail including but not limited to infection, bleeding, damage to bladder, bowel, ureteric injury. Patient states understanding and wishes to proceed.
[2023-04-18] MEDS ORDERED: BUPIVACAINE (PF) 0.25% 30 ML VIAL SQ ONE ×2 (10:50→12:45)
[2023-04-18] MEDS ORDERED: SUCCINYLCHOLINE CHLORIDE 200 MG/10 ML VIAL IV ONE (10:58)
[2023-04-18] MEDS ORDERED: LIDOCAINE 2% INJ 20 MG/ML (2 ML VIAL) ONE (10:58)
[2023-04-18] MEDS ORDERED: PHENYLEPHRINE-0.9% NACL SYG 1,000 MCG/10 ML SYRINGE ONE (10:58)
[2023-04-18] MEDS ORDERED: MORPHINE SULFATE (PF) 0.3 MG/0.3 ML SYR ONE (10:58)
[2023-04-18] MEDS ORDERED: NEOSTIGMINE 1 MG/ML 10 ML VIAL ONE (10:58)
[2023-04-18] MEDS ORDERED: ePHEDrine 50 MG/ML 1 ML VIAL ONE (10:58)
[2023-04-18] MEDS ORDERED: ROCURONIUM 10 MG/ML (5 ML VIAL) IV ONE (10:58)
[2023-04-18] MEDS ORDERED: GLYCOPYRROLATE 0.2 MG/ML 2 ML VIAL ONE (10:58)
[2023-04-18] MEDS ORDERED: fentaNYL (PF) 50 MCG/ML 2 ML AMP ONE (10:58)
[2023-04-18] MEDS ORDERED: diphenhydrAMINE 50 MG/ML 1 ML VIAL ONE (10:58)
[2023-04-18] MEDS ORDERED: MIDAZOLAM 2 MG/2 ML VIAL ONE (10:58)
[2023-04-18] MEDS ORDERED: PROPOFOL 10 MG/ML 20 ML VIAL IV ONE (10:58)
[2023-04-18] MEDS ORDERED: LACTATED RINGERS 1,000 ML IV ONE (12:42)
--- NOTE | 2023-04-18 12:50 | P.ANPRN ---
Procedure Note - Anesthesia - Epidural/Spinal Spinal Time Out Performed: Yes Date of Procedure: 04/18/23 Procedure Start Time: 09:45 Procedure Stop Time: 09:49 Location of Patient: PreOp Indication: Acute Post-Operative Pain, Requested by Surgeon Sedation Type: Sedate with meaningful contact maintained Preparation: Sterile Prep Position: Sitting Needle Guage: 25 Blood Aspirated: No Pain Paresthesia on Injection Noted: No Events: Uneventful and Well Tolerated (duramorph 300 mics plus feantanyl 25 mics)
[2023-04-18] MEDS ORDERED: IBUPROFEN 600 MG TAB PO PRN (12:51)
[2023-04-18] MEDS ORDERED: SIMETHICONE 80 MG CHEWABLE PO PRN (12:51)
[2023-04-18] MEDS ORDERED: ONDANSETRON 4 MG/2 ML VIAL IVP PRN (12:51)
--- NOTE | 2023-04-18 13:03 | P.OP ---
Date of Procedure: 04/18/23 Preoperative Diagnosis: Menorrhagia, dysmenorrhea, ovarian cyst Postoperative Diagnosis: Same Procedure(s) Performed: Robotic-assisted vaginal hysterotomy, bilateral salpingectomy, diagnostic cystoscopy, lysis of adhesions Anesthesia: SCOTTA Surgeon: Janna Arnold Project Reservoir Engineer #1: Mendel Avila Estimated Blood Loss (ml): 50 IV fluids (ml): 900 Urine output (ml): 900 Pathology: other (uterus, cervix,b/l fallopian tubes) Condition: stable Disposition: PACU Indications for Procedure: menorrhagia, dysmenorrhea, large ovarian cyst Operative Findings: Globular uterus, large right ovarian cyst simple in nature, drained with straw- colored fluid appreciated. Hemorrhagic cyst on the left appears ovulatory. On cystoscopy uterus was intact, both ureteral orifices were spilling clear urine Description of Procedure: Patient was taken back to the operating suite where general anesthesia was obtained without difficulty. She is prepped and draped in the normal sterile fashion in the dorsal lithotomy position. A Hunter catheter was then placed under sterile technique. Weighted speculum was placed in the posterior vaginal vault the interval of the cervix is visualized and grasped with a single-tooth tenaculum. The endocervical canal was then serially dilated and a V care uterine miniplate was advanced into the uterus as a means to manipulate the uter us throughout the procedure. The balloon was insufflated and the cervical cap was placed snugly against the cervix. Attention then turned the patient's abdomen are partially 2 finger breaths above the umbilicus a small skin incision is made. Through this incision the Veress needle is placed. Once the Veress needle was deemed to be in the proper position with a drop of CO2 pressure with insufflation of CO2 gas CO2 insufflation was allowed to occur. At this time 8 mm trocar and sleeve is placed through the skin incision and toward the pneumoperitoneum. The above-noted findings were visualized. At this time the additional port sites are placed at 10 cm lateral and 3 cm inferior to the midline port these are 8 mm ports and placed under direct visualization. In the left upper quadrant a 12 mm trocar and sleeve is placed under direct visualization. At this time a omental adhesion was noted to be midline in nature the left Scissors were placed and this was taken down sharply with cau ynes. Hemostasis was appreciated. At this time the da Quique was docked in the usual fashion. The operative arms are now placed. In the right operative arm the monopolar scissors is placed in the left operative arm the bipolar forceps is placed. Attention was then turned to the patient's left fallopian tube which was elevated coagulated and transected. The mesosalpinx was transected up to the uterine ovarian ligament. The uterine ovarian ligament was visualized coagulated distally and proximally divided this continued through the broad and toward the round which is coagulated and transected. Hemostasis was noted. The bladder flap from the left was then created using sharp and blunt dissection. The uterine artery was visualized on the left coagulated and transected. Attention was then turned the patient's right fallopian tube which was elevated and transected. The mesosalpinx was coagulated and transected to the uterine ovarian ligament. The uterine ovarian ligament was coagulated distally and proximally and divided. This continued through the broad and toward the round with good hemostasis noted. The round ligament was visualized quite distally and proximally divided. The bladder flap from the right was then created using sharp and blunt dissection. A Ray-Bhupinder was then passed into the abdomen as a means to dissect the bladder further away from the operating field, the uterine artery was then visualized coagulated and transected. Hemostasis was noted. At this time the only remaining attachment was a vaginal attachment therefore colpotomy incision was made in a circumferential fashion. The uterus bilateral fallopian tubes were delivered through the vaginal opening. The pelvis then copiously irrigated and any points of bleeding were made hemostatic with the Bovie. The vaginal cuff was then closed with 0 Vicryl with multiple [id number] sutures. Once again the pelvis was then obesity irrigated small amount of bleeding was noted on the right-hand side of the vaginal cuff no active bleeding just a slow ooze was noted Surgicel powder was placed over this area and no further bleeding was appreciated. CO2 was released from the abdomen and no excessive bleeding was appreciated. At this time all instruments were removed from the patient's abdomen and the da Quique was undocked in usual fashion. Attention was then turned the patient's Hunter catheter which was removed without difficulty. The cystoscope was then performed. The cystoscope was placed through the urethra and toward the bladder bladder bubble was appreciated on complete survey of the bladder the bladder mucosa was normal in nature. Both ureteral orifices were noted to be spilling clear yellow urine. The cystoscope was removed and the Hunter catheter was replaced. The vaginal vault was cleared of any clots or debris no active bleeding was appreciated. Attention was then turned the patient's abdomen where the skin incisions were closed with 4-0 Vicryl in a subcuticular fashion. Steri-Strips and sterile dressings were applied. All counts were noted correct 2 at the end of the procedure. Patient tolerated procedure well was taken the recovery room awake in stable condition.
[2023-04-18] MEDS ORDERED: ACETAMINOPHEN IV (For NPO) 1,000 MG in EMPTY BAG 1 BAG IVPB ONE (13:30)
[2023-04-18] MEDS ORDERED: diphenhydrAMINE 50 MG/ML 1 ML VIAL IVP ONE (13:42)
[2023-04-18] MEDS ORDERED: IBUPROFEN IV 800 MG in SODIUM CHLORIDE 0.9% 250 ML IV ONE (14:00)
[2023-04-18] MEDS ORDERED: NALBUPHINE 10 MG/ML (10 ML MDV) IV STA (14:01)
[2023-04-18] MEDS: NALBUPHINE 10 MG/ML (10 ML MDV) IV PRN (16:25)
[2023-04-18 17:08] VITALS: RESP 16
[2023-04-18] MEDS ORDERED: LACTATED RINGERS 1,000 ML IV SCH (17:45)
[2023-04-18] MEDS ORDERED: SENNOSIDES-DOCUSATE SODIUM 1 EACH TAB PO SCH (21:00)
[2023-04-18] MEDS: CEPHALEXIN 500 MG CAP PO SCH (21:34)
[2023-04-19] MEDS: NALBUPHINE 10 MG/ML (10 ML MDV) IV PRN (05:41)
[2023-04-19 05:59] VITALS: BP 120/72; PULSE 42; TEMP 98
[2023-04-19 06:26] LABS: Basophils % (A) 0 %; Eosinophils # (A) 0.1 k/uL (0-0.7); Eosinophils % (A) 1 %; HCT 33.8 % (34.0-46.0); HGB 11.1 gm/dL (11.4-16.0); Lymphocytes # (A) 1.9 k/uL (1.0-4.8); Lymphocytes % (A) 24 %; MCH 31.7 pg (25.0-35.0); MCHC 32.8 g/dL (31.0-37.0); MCV 96.7 fL (80.0-100.0); Mean Platelet Volume 9.5; Monocytes # (A) 0.4 k/uL (0-1.0); Monocytes % (A) 4 %; Neutrophils # (A) 5.6 k/uL (1.3-7.7); Neutrophils % (A) 70 %; Platelet Count 180 k/uL (150-450); RDW 12.9 % (11.5-15.5); WBC 7.9 k/uL (3.8-10.6)
--- NOTE | 2023-04-19 06:26 | P.PN ---
Progress Note - Text Progress Note Date: 04/19/23 Ms. Welch is a 42-year-old female had a history of robotic-assisted vaginal hy sterectomy- postoperative day 1 , for postop pain control spinal analgesia with Astramorph 300 g, and fentanyl 25 g for postop pain. Today patient is comfortable sitting in her bed. Today patient rated her pain level 3 out of 10 in severity. Denied any fever, drowsiness, confusion. Denied any weakness, tingling sensation in her lower extremities. Denied any bowel or bladder problems. Moving all extremities without any difficulty. Able to walk without any difficulties. Vitals: Hemodynamically stable Continue oral pain medication as per primary team
[2023-04-19] MEDS: CEPHALEXIN 500 MG CAP PO SCH (09:10)
[2023-04-19] MEDS ORDERED: ACETAMINOPHEN TAB 325 MG TAB PO PRN (12:53)
--- NOTE | 2023-04-19 12:57 | P.DS ---
Providers Date of admission: 04/18/2023 Expected date of discharge: 04/19/23 Attending physician: Janna Arnold Primary care physician: Stated None - Discharge Diagnosis(es) (1) Menorrhagia Status: Acute (2) Dysmenorrhea Status: Acute (3) Ovarian cyst Status: Acute (4) Fibroid uterus Status: Acute (5) S/P laparoscopic hysterectomy Status: Acute Hospital Course: 42-year-old female presented to the hospital yesterday for scheduled robotic cyst vaginal rest with bilateral salpingectomy, diagnostic cystoscopy. Patient has been struggling with heavy menstrual bleeding and dysmenorrhea, noted large simple appearing ovarian cyst in addition. Patient elected definitive treatment with hysterectomy. For fertility as on this patient please see the dictated history and physical Patient was taken back to the operating suite where surgery was performed without difficulty. For full details on the surgery please see the operative report. Patient's postoperative course has been uneventful. On this postoperative day #1 she is ambulating and voiding without difficulty. Her pain is well-controlled. She does note some minimal spotting. She denies concerns and does wish discharge home. Patient Condition at Discharge: Good Plan - Discharge Summary Discharge Rx Participant: Yes New Discharge Prescriptions: No Action Fexofenadine HCl [Linda Allergy] 180 mg PO DAILY Azelastine HCl [Astelin Nasal [place]] 2 sprays NASAL BID levETIRAcetam [Keppra] 750 mg PO Q12HR Doxycycline Hyclate 100 mg PO BID Discharge Medication List Azelastine HCl [Astelin Nasal [place]] 2 sprays NASAL BID 12/10/21 [History] Fexofenadine HCl [Linda Allergy] 180 mg PO DAILY 12/10/21 [History] Doxycycline Hyclate 100 mg PO BID 04/11/23 [History] levETIRAcetam [Keppra] 750 mg PO Q12HR 04/11/23 [History] Follow up Appointment(s)/Referral(s): Janna Arnold DO [Doctor of Osteopathic Medicine] - 2 Weeks Patient Instructions/Handouts: Vaginal Hysterectomy (DC) Activity/Diet/Wound Care/Special Instructions: Call for 2 week follow up appointment with Dr Arnold Discharge Disposition: HOME SELF-CARE
== END 2023-04-19 12:24 | disposition home or self-care (01) ==
LOC: OR 08:39 → 4FBP 12:45 → OR 04-19 12:24
PROVIDERS: ATTEND Obstetrics & Gynecology Obstetrics
DX: D28.2 Benign neoplasm of uterine tubes and ligaments (principal); N83.202 Unspecified ovarian cyst, left side; N72 Inflammatory disease of cervix uteri; N88.8 Other specified noninflammatory disorders of cervix uteri; D25.1 Intramural leiomyoma of uterus; N94.89 Other specified conditions associated with female genital organs and menstrual cycle; Z87.891 Personal history of nicotine dependence; Z90.49 Acquired absence of other specified parts of digestive tract; Z88.5 Allergy status to narcotic agent
CPT/HCPCS: 58552; S2900; 81025; 85025; 86850; 86900; 86901; 88307

== ENCOUNTER → 2023-05-10 | Outpatient (CLI) | payer BC ==
[2023-05-10 15:32] LABS: ALT 12 U/L (8-44); AST 17 U/L (13-35); Albumin 4.3 d/dL (3.8-4.9); Albumin/Globulin Ratio 1.54 Ratio (1.60-3.17); Alkaline Phosphatase 43 U/L (41-126); Bilirubin, Conjugated <0.20 mg/dL (0.20-0.40); Bilirubin,Unconjugated >0.10 mg/dL (0.20-1.00); Chol/HDL Ratio 3.08 Ratio; Globulin 2.8 d/dL (1.6-3.3); HCG,Quantitative Serum <3.0 mIU/mL (0.0-6.0); LDL Cholesterol,Calculated 96.3 mg/dL (0.0-131.0); Total Bilirubin 0.3 mg/dL (0.3-1.2); Total Protein 7.1 d/dL (6.2-8.2); VLDL Calculation 15.06 mg/dL (5.00-40.00)
[2023-05-10 15:59] LABS: Basophils # (A) 0.05 X 10*3/uL (0.00-0.10); Basophils % (A) 0.7 %; Eosinophils % (A) 4.4 %; HGB 12.1 d/dL (12.0-15.0); Lymphocytes # (A) 2.45 X 10*3/uL (0.90-5.00); Lymphocytes % (A) 35.9 %; MCH 29.7 pg (27.0-32.0); MCV 95.8 FL (80.0-97.0); Mean Platelet Volume 11.9 FL (9.5-12.2); Monocytes # (A) 0.48 X 10*3/uL (0.20-1.00); NRBC Per 100 WBC 0 X 10*3/uL (0.00-0.01); Neutrophils # (A) 3.51 X 10*3/uL (1.80-7.70); Neutrophils % (A) 51.6 %; Platelet Count 217 X 10*3/uL (140-440); RBC 4.07 X 10*6/uL (4.10-5.20); RDW 12.7 % (11.5-14.5); WBC 6.82 X 10*3/uL (4.50-10.00)
== END | disposition home or self-care (01) ==
LOC: LABWHC1 09:44
PROVIDERS: ATTEND Nurse Practitioner Family
DX: L70.0 Acne vulgaris (principal)
CPT/HCPCS: 36415; 80061; 80076; 84702; 85025

== ENCOUNTER → 2023-10-16 | Outpatient (CLI) | payer BC ==
--- NOTE | 2023-10-16 15:26 | CT ---
EXAMINATION TYPE: CT sinus wo con DATE OF EXAM: 10/16/2023 COMPARISON: 10/11/2021 HISTORY: Chronic sinusitis CT DLP: [address] of the paranasal sinuses was performed in the axial and coronal planes. Bone and soft tissue settings are submitted. The paranasal sinuses demonstrate normal aeration and development. Again noted is partial opacification of the posterior ethmoid air cells bilaterally right greater apoorva n left. The remaining paranasal sinuses are well aerated. The osteal meatal units are patent bilaterally. The nasal septum is midline. No bony destructive changes are seen within the field of view. IMPRESSION: Again noted is partial opacification of the posterior ethmoid air cells bilaterally right greater apoorva n left.
== END | disposition home or self-care (01) ==
LOC: RADCTMAIN 14:48
PROVIDERS: ATTEND Otolaryngology
DX: J34.89 Other specified disorders of nose and nasal sinuses (principal); J32.0 Chronic maxillary sinusitis
CPT/HCPCS: 70486

== ENCOUNTER → 2024-12-30 | Outpatient (CLI) | payer BC ==
[2024-12-30 16:19] LABS: Basophils # (A) 0.04 X 10*3/uL (0.00-0.10); Basophils % (A) 0.8 %; Eosinophils # (A) 0.12 X 10*3/uL (0.04-0.35); Eosinophils % (A) 2.4 %; HCT 40.7 % (37.2-46.3); Lymphocytes # (A) 1.62 X 10*3/uL (0.90-5.00); Lymphocytes % (A) 32.1 %; MCH 31.1 pg (27.0-32.0); MCHC 31.9 g/dL (32.0-37.0); MCV 97.4 FL (80.0-97.0); Mean Platelet Volume 11.8 FL (9.5-12.2); Monocytes # (A) 0.32 X 10*3/uL (0.20-1.00); Monocytes % (A) 6.3 %; NRBC Per 100 WBC 0 X 10*3/uL (0.00-0.01); Neutrophils # (A) 2.94 X 10*3/uL (1.80-7.70); Neutrophils % (A) 58.2 %; Platelet Count 182 X 10*3/uL (140-440); RBC 4.18 X 10*6/uL (4.10-5.20); RDW 12.6 % (11.5-14.5); WBC 5.05 X 10*3/uL (4.50-10.00)
== END | disposition home or self-care (01) ==
LOC: LABPAT 09:51
PROVIDERS: ATTEND Obstetrics & Gynecology Obstetrics
DX: Z01.812 Encounter for preprocedural laboratory examination (principal); R10.2 Pelvic and perineal pain
CPT/HCPCS: 85025

== ENCOUNTER 2025-01-09 08:34 | Day surgery (SDC) | payer BC ==
[2025-01-06 09:33] VITALS: BMI 23.8
[~2025-01-09 08:34] MED LIST changes: -DEXAMETHASONE SOD PHOSPHATE 4 MG/ML 1 ML VIAL IV ONE; +HYDROmorphone 0.5 MG/0.5 ML SYRINGE IVP PRN; -LACTATED RINGERS 1,000 ML IV SCH; +LIDOCAINE 1% (10MG/ML) FOR IV START INTRADERMA PRN; -ONDANSETRON 4 MG/2 ML VIAL IVP ONE; -fentaNYL (PF) 50 MCG/ML 2 ML AMP IV PRN
[2025-01-09] MEDS: IV FLUID CONTINUATION 1,000 ML IV ONE (09:15)
--- NOTE | 2025-01-09 09:17 | P.HPOB ---
History of Present Illness H&P Date: 01/09/25 Chief Complaint: Right ovarian cyst, accessed 44-year-old female that presents for scheduled robotic assisted right oophorectomy. Patient has been struggling with midline pain and increased bloating. On ultrasound right ovarian cyst a 6 x 5 x 6 with a complex portion of 2 x 2 x 2 is a appreciated. Patient states that her pain is worse with work sitting and standing. Patient does have a prior history of a hysterectomy with bilateral salpingectomy in April 2023. Patient was counseled on conservative management versus oophorectomy, patient desires before active given consistent discomfort. Review of Systems Constitutional: Denies chills, Denies fatigue, Denies fever Ears, nose, mouth and throat: Denies headache Cardiovascular: Denies leg edema Respiratory: Denies dyspnea Gastrointestinal: Denies nausea, Denies vomiting Genitourinary: Reports as per HPI, Reports pelvic pain Past Medical History Past Medical History: Seizure Disorder Additional Past Medical History / Comment(s): Acne, seasonal allergies, back pain, past hx of one grand mal seizure and "partial seizures"-last seizure approx 2 years ago. History of Any Multi-Drug Resistant Organisms: None Reported Past Surgical History: Cholecystectomy Additional Past Surgical History / Comment(s): vaginal hysterectomy w/ L ovary and fallopian tube removal, tear duct surgery B/L eyes Past Anesthesia/Blood Transfusion Reactions: Previous Problems w/ Anesthesia Additional Past Anesthesia/Blood Transfusion Reaction / Comment(s): Had bad reaction to morphine after hysterectomy-severe itching and heart racing; no history of blood tranfusion Smoking Status: Former smoker - Past Family History Father Family Medical History: Cancer Additional Family Medical History / Comment(s): esophageal CA and Melanoma Medications and Allergies Home Medications Medication Instructions Recorded Confirmed Type Fexofenadine HCl [Linda Allergy] 180 mg PO DAILY 12/10/21 01/06/25 History Acetaminophen Tab [Tylenol Tab] 500 mg PO Q6H PRN 01/06/25 01/06/25 History [place] Eye Drop 1 drop BOTH EYES BID 01/06/25 01/06/25 History Prednisolone Acetate/Pf 1 drop BOTH EYES DAILY 01/06/25 01/06/25 History [Prednisolone Acet 1% Eye Drop] Triamcinolone Acetonide [Nasacort] 1 spray EA NOSTRIL DAILY 01/06/25 01/06/25 History Allergies Allergy/AdvReac Type Severity Reaction Status Date / Time codeine Allergy Chest Pain Verified 01/06/25 09:36 morphine Allergy Rapid Verified 01/06/25 09:33 Heart Rate, severe itching Exam Osteopathic Statement: *. No significant issues noted on an osteopathic structural exam other than those noted in the History and Physical/Consult. Vital Signs Temp Pulse Resp BP Pulse Ox 01/09/25 09:09 98.3 F 58 L 16 145/81 100 Intake and Output 01/08/25 01/09/25 01/09/25 22:59 06:59 14:59 Other: Weight 78 kg - OBG Physical Exam Abdomen: bowel sounds normal, no diffuse tenderness Vagina: [place] and well-rugated without mass Cervix: Absent Uterus: absent Adnexa: midline to right adnexal mass tenderness to palpation Adnexa: both: mass Assessment and Plan (1) Pelvic pain Current Visit: Yes Status: Acute Code(s): R10.2 - PELVIC AND PERINEAL PAIN SNOMED Code(s): 37365458 (2) Ovarian cyst Current Visit: No Status: Acute Code(s): N83.209 - UNSPECIFIED OVARIAN CYST, UNSPECIFIED SIDE SNOMED Code(s): 51294727 Plan: 44-year-old female with large right ovarian simple appearing cyst with a 2 x 2 x 2 cm hemorrhagic portion. Patient desires definitive treatment with oophorectomy. Surgery is reviewed and questions are answered. Risks are reviewed including but not limited to infection, bleeding, damage to bladder, bowel, ureteric injury. Patient states understanding of these risks and wished to proceed. Informed consent is obtained.
[2025-01-09] MEDS: DEXAMETHASONE SOD PHOSPHATE 4 MG/ML 1 ML VIAL IV ONE (09:22)
[2025-01-09] MEDS: MIDAZOLAM 2 MG/2 ML VIAL IV PRN (09:22)
[2025-01-09] MEDS: LACTATED RINGERS 1,000 ML IV SCH (09:22)
[2025-01-09] MEDS: ONDANSETRON 4 MG/2 ML VIAL IVP ONE (09:22)
[2025-01-09] MEDS ORDERED: SUCCINYLCHOLINE CHLORIDE 200 MG/10 ML VIAL IV ONE (09:27)
[2025-01-09] MEDS ORDERED: fentaNYL (PF) 50 MCG/ML 2 ML AMP ONE (09:27)
[2025-01-09] MEDS ORDERED: LIDOCAINE 1% INJ 10MG/ML (20 ML MDV) ONE (09:27)
[2025-01-09] MEDS ORDERED: ROCURONIUM 10 MG/ML (5 ML VIAL) IV ONE (09:27)
[2025-01-09] MEDS ORDERED: GLYCOPYRROLATE 0.2 MG/ML 2 ML VIAL ONE (09:27)
[2025-01-09] MEDS ORDERED: KETOROLAC 15 MG/ML 1 ML VIAL ONE (09:27)
[2025-01-09] MEDS ORDERED: NEOSTIGMINE 1 MG/ML 10 ML VIAL ONE (09:27)
[2025-01-09] MEDS ORDERED: PROPOFOL 10 MG/ML 20 ML VIAL IV ONE (09:27)
[2025-01-09] MEDS: BUPIVACAINE (PF) 0.25% 30 ML VIAL SQ ONE ×2 (09:38→10:16)
--- NOTE | 2025-01-09 10:29 | P.OP ---
Date of Procedure: 01/09/25 Preoperative Diagnosis: Large right ovarian cyst, pelvic pain Postoperative Diagnosis: Same Procedure(s) Performed: Robotic assisted right oophorectomy Anesthesia: GETA Surgeon: Janna Arnold Estimated Blood Loss (ml): 5 IV fluids (ml): 600 Urine output (ml): 50 (Clear yellow) Pathology: other (Right ovary) Condition: stable Disposition: PACU Indications for Procedure: Pelvic pain, large right ovarian cyst 6 x 5 x 6 Operative Findings: Large right ovarian cyst normal-appearing left ovary Description of Procedure: Patient was taken back to the operating suite after informed consent was obtained. General anesthesia was obtained without difficulty by the anesthesia department. She was prepped and draped in the normal sterile fashion in the dorsal lithotomy position. A Hunter catheter was placed under sterile technique. A sponge stick was placed in the vagina as a means to maneuver the vaginal cuff during the surgery. Attention was then turned to the patient's abdomen where approximately 2 fingerbreadths above the umbilicus a small skin incision was made. Through this incision the Veress needle was placed, 1 severe as needle is deemed to be in the proper position with a drop of CO2 pressure with the CO2 insufflation of gas. CO2 insufflation is allowed to occur, approximately 3 L of gas were used to obtain pneumoperitoneum. At this time the trocar and sleeve was placed through the skin incision with the laparoscope in place. The above- noted findings are visualized. The additional port sites were then placed 10 cm lateral and 3 cm inferior to the midline port these are operative ports and placed under direct visualization. In the left upper quadrant a 12 mm trocar and sleeve is placed under direct visualization. The da Quique robot is docked i n the usual fashion at this time. In the right operative arm the monopolar scissors is placed, in the left operative arm the bipolar forceps is placed. The right ovary is elevated and the infundibulopelvic ligament is transected. Hemostasis is appreciated throughout the procedure. The cyst was then placed in the Endo Catch bag and ruptured in the bag. Clear straw-colored fluid is appreciated. Endo Catch bag was removed and the cyst was removed without difficulty through the 12 mm trocar port. The pelvis was then irrigated and no bleeding was appreciated. All instruments were removed from the patient's abdomen. The da Quique was undocked in the usual fashion. The skin incisions were then closed with 0 Vicryl in a subcuticular fashion. Steri-Strips and sterile dressings were applied. Hunter catheter was removed without difficulty, clear yellow urine was noted in the Hunter tubing. The sponge stick had been removed prior to this. All counts found to be correct x 2. Patient tolerated procedure well and was taken to recovery in awake and stable condition.
[2025-01-09] MEDS: fentaNYL (PF) 50 MCG/ML 2 ML AMP IVP PRN (11:18)
[2025-01-09 11:31] VITALS: TEMP 97.8
[2025-01-09 11:50] VITALS: RESP 18
[2025-01-09 12:10] VITALS: BP 144/68; PULSE 54
== END 2025-01-09 12:23 | disposition home or self-care (01) ==
LOC: OR 08:34
PROVIDERS: ATTEND Obstetrics & Gynecology Obstetrics
DX: D27.0 Benign neoplasm of right ovary (principal); G40.409 Other generalized epilepsy and epileptic syndromes, not intractable, without status epilepticus; Z91.89 Other specified personal risk factors, not elsewhere classified; Z79.899 Other long term (current) drug therapy; Z87.891 Personal history of nicotine dependence; Z90.710 Acquired absence of both cervix and uterus; Z90.79 Acquired absence of other genital organ(s); Z88.5 Allergy status to narcotic agent
CPT/HCPCS: 58661; S2900; 88305